=== PATIENT | female | born 1990 ===

== ENCOUNTER 2021-04-18 19:36 | Outpatient (CLI) | payer OTHER | END 2021-04-19 10:28 | disposition home or self-care (01) | LOC: OBS/DEL 19:36 | PROVIDERS: ATTEND Specialist | DX: O26.893 Other specified pregnancy related conditions, third trimester (principal); Z04.3 Encounter for examination and observation following other accident; Z3A.28 28 weeks gestation of pregnancy; W18.39XA Other fall on same level, initial encounter; Y93.89 Activity, other specified; Y92.89 Other specified places as the place of occurrence of the external cause; Y99.8 Other external cause status ==

== ENCOUNTER 2021-06-27 22:19 | Inpatient (IN) | payer OTHER ==
[~2021-06-27] VITALS: Ht 160 cm; Wt 86.6 kg
[2021-06-27] MEDS ORDERED: PRENATAL + DHA1 EAC1 (23:54)
== END 2021-06-29 14:35 | disposition home or self-care (01) | DRG 807 ==
LOC: LDR 22:19
PROVIDERS: ADMIT Specialist; ATTEND Specialist
PROC: 10E0XZZ Delivery of Products of Conception, External Approach (ICD-10-PCS; principal; 2021-06-27)
PROC: 4A1HXFZ Monitoring of Products of Conception, Cardiac Rhythm, External Approach (ICD-10-PCS; 2021-06-27)
DX: O64.8XX0 Obstructed labor due to other malposition and malpresentation, not applicable or unspecified (principal); Z37.0 Single live birth; O99.824 Streptococcus B carrier state complicating childbirth; Z3A.38 38 weeks gestation of pregnancy